=== PATIENT | male | born 1955 | race Caucasian/White ===

== ENCOUNTER 2016-07-20 15:34 | Inpatient (IN) ==
--- NOTE | 2016-07-20 17:09 | Emergency Department Note ---
Disposition Clinical Impression: Aneurysm artery, femoral Disposition: Admitted As Inpatient Condition: Good General Adult HPI - General Chief complaint: ED General Medical Stated complaint: knot near groin Time Seen by Provider: 07/20/16 16:26 Source: patient Limitations: no limitations - History of Present Illness Pain Scale: 10 - Related Data Home Medications Medication Instructions Recorded Confirmed Albuterol Sulfate [Albuterol 1 puff IH Q4H PRN 07/20/16 07/20/16 Inhaler] Aspirin Enteric Coated [Aspirin EC] 81 mg PO DAILY 07/20/16 07/20/16 Fenofibrate,Micronized [Lofibra] 200 mg PO DAILY 07/20/16 07/20/16 Isotretinoin [Absorica] 30 mg PO DAILY 07/20/16 07/20/16 Niacin (Inositol Niacinate) 500 mg PO TID 07/20/16 07/20/16 [Niacin 500 mg Capsule] [place]-3/Dha/Epa/Fish Oil [Fish Oil 1,000 mg PO DAILY 07/20/16 07/20/16 1,000 mg Softgel] Pravastatin Sodium [Pravachol] 80 mg PO DAILY 07/20/16 07/20/16 Quinapril HCl [Accupril] 40 mg PO DAILY 07/20/16 07/20/16 Allergies Allergy/AdvReac Type Severity Reaction Status Date / Time No Known Allergies Allergy Verified 07/20/16 17:11 Past Medical History - Past Medical History Medical history: Reports: asthma, hyperlipidemia, hypertension, peripheral artery disease Psychiatric history: Reports: no psych history - Social History Smoking Status: Current every day smoker Smokeless Tobacco Status: No Alcohol use: Reports: occasionally Drug use: Reports: none Physical Exam - General Limitations: no limitations General appearance: alert, in no apparent distress Course Vital Signs Temperature 98.4 F 07/20/16 15:53 Pulse Rate 96 07/20/16 15:53 Respiratory Rate 18 07/20/16 15:53 Blood Pressure 112/74 07/20/16 15:53 O2 Sat by Pulse Oximetry 96 07/20/16 15:53 Temperature 98.4 F 07/20/16 20:13 Pulse Rate 70 07/20/16 20:13 Respiratory Rate 18 07/20/16 20:13 Blood Pressure 146/85 07/20/16 20:13 O2 Sat by Pulse Oximetry 94 L 07/20/16 20:13 Oxygen Delivery Oxygen Delivery Room Air Medical Decision Making - Lab Data Result diagrams: 07/20/16 17:37 07/20/16 17:37 Lab Results 07/20/16 07/20/16 07/20/16 Range/Units 17:37 17:37 17:37 WBC 10.2 (4.3-11.1) K/mcL RBC 5.04 (4.19-5.50) M/mcL Hgb 15.2 (12.9-16.9) g/dL Hct 46.6 (37.5-50.1) % MCV 92.5 (83.0-100.0) fL MCH 30.2 (28.0-33.3) pg MCHC 32.6 (31.6-35.5) g/dL RDW 12.7 (11.5-14.5) % Plt Count 334 (140-400) K/mcL MPV 8.8 L (9.4-12.4) fL Immature Gran % 0.3 (0-4) % Seg Neutrophils % 59.7 % Lymphocytes % 26.5 % Monocytes % 10.7 % Eosinophils % 2.5 % Basophils % 0.3 % Neutrophils # 6.1 (1.6-8.9) K/mcL Lymphocytes # 2.7 (0.6-4.6) K/mcL Monocytes # 1.1 (0.0-1.3) K/mcL Eosinophils # 0.3 (0.0-0.6) K/mcL Basophils # 0.0 (0.0-0.2) K/mcL PT 12.3 H (9.4-12.1) Seconds INR 1.1 APTT 27.8 (26.0-36.0) Seconds Sodium 139 (136-145) mEq/L Potassium 4.2 (3.5-4.5) mEq/L Chloride 105 (98-109) mEq/L Carbon Dioxide 26 (19-29) mEq/L BUN 11 (8-26) mg/dL Creatinine 0.76 (0.72-1.25) mg/dL Est GFR ( Amer) > 60 (> 60) Est GFR (Non-Af Amer) > 60 (> 60) BUN/Creatinine Ratio 14 (6-26) Glucose 100 H (70-99) mg/dL Calculated Osmolality 287 (280-300) Calcium 8.9 (8.6-10.8) mg/dL Critical Care Time Critical Care Time: Yes Total Critical Care Time: 30 Attestation: Critical care performed: Time is exclusive of separately billable procedures. Time includes: direct patient care, patient reassessment, coordination of patient care, interpretation of data (laboratory data, radiology data, and respiratory data), review of patient's medical records, medical consultation and documentation of patient care. Procedures included in critical care time: Procedures excluded from critical care time: Attestation Statement - Attestation Attestation: I examined this patient and my medical decision-making was reviewed with the CHILD AND FAMILY SERVICES WORKER/PA/Advanced Practice Nurse/Resident Physician. I agree with the documented findings, disposition and treatment plan as described except to the extent set forth below. Patient emergency department playing of a knot in his left groin. He was sent in by his crusher screen repairer. States he noticed it 3 days ago. On examination there is a palpable knot that is pulsatile in his left groin. No redness or warmth to the area. Plan. We will get an arterial Doppler. Reviewing the patient's old charts he appears to have had a similar episode in 1999 1510 and an ophthalmologically migraine had a prior aortic [place] bypass in the left side. Question if this is happening again. We will get ultrasound discussed with vascular.
--- NOTE | 2016-07-20 17:13 | Emergency Department Note ---
Disposition Clinical Impression: Aneurysm artery, femoral Disposition: Admitted As Inpatient Condition: Good Referrals: NO,PCP [Primary Care Provider] - Forms: ED Satisfaction Letter, Work/School Release Time of Disposition: 18:29 General Adult HPI - General Chief complaint: ED General Medical Stated complaint: knot near groin Time Seen by Provider: 07/20/16 16:26 Source: patient Limitations: no limitations Nursing Notes Reviewed: Yes Vital Signs Reviewed: Yes - History of Present Illness HPI Narrative: Patient noticed a mass 3 days ago in his left groin. He states that he was at the [facility] today and that doctor stated that he needed to come to be evaluated in the emergency department. Pain Scale: 10 - Related Data Allergies Allergy/AdvReac Type Severity Reaction Status Date / Time No Known Allergies Allergy Verified 07/20/16 17:11 Review of Systems: Patient denies any fevers or chills. He denies any headaches or syncope. Denies any shortness of breath or chest pain. He does state that he has a numbness feeling in the ball of his left foot. He denies any swelling or edema to his extremities. He does state that he has and not to his left groin area. All systems ED: reviewed and negative except as stated. Past Medical History - Past Medical History Medical history: Reports: asthma, hyperlipidemia, hypertension, peripheral artery disease Psychiatric history: Reports: no psych history - Social History Smoking Status: Current every day smoker Smokeless Tobacco Status: No Alcohol use: Reports: occasionally Drug use: Reports: none Physical Exam - General Limitations: no limitations General appearance: alert, in no apparent distress - Head Head exam: atraumatic, normocephalic, normal inspection - Eye Eye exam: Present: normal appearance, PERRL, EOMI - ENT ENT exam: normal exam, normal oropharynx, mucous membranes moist - Neck Neck exam: Present: normal inspection, full ROM, trachea midline - Chest Chest inspection: Present: normal inspection, symmetric chest wall rise - Respiratory Respiratory exam: Present: normal lung sounds bilaterally. Absent: respiratory distress - Cardiovascular Cardiovascular exam: Present: regular rate, normal rhythm, normal heart sounds - Abdominal Exam Abdominal exam: Present: soft, Non-Tender, normal bowel sounds, other ( Pulsating masses left groin. Pain with deep palpation to this area.). Absent: tenderness, distention, guarding, rebound, rigidity, organomegaly - Extremities Exam Extremities exam: Present: normal inspection, full ROM, normal capillary refill. Absent: tenderness, pedal edema - Expanded Lower Extremity Exam Hip/Pelvis exam: Present: normal inspection, full ROM Upper leg exam: Present: normal inspection, full ROM Knee exam: Present: normal inspection, full ROM Lower leg exam: Present: normal inspection, full ROM Ankle exam: Present: normal inspection, full ROM Foot/toe exam: Present: normal inspection, full ROM, other (Patient states numbness to the ball of his left foot.). Absent: tenderness Neurovascular/Tendon exam: Present: normal capillary refill, other (Strong posterior tibial pulses bilaterally.). Absent: pulse deficit, motor deficit, sensory deficit, tendon deficit - Back Exam Back exam: Present: normal inspection, full ROM. Absent: tenderness - Neurological Exam Neurological exam: Present: alert, oriented X3 - Psychiatric Psychiatric exam: Present: normal affect, normal mood - Skin Skin exam: Present: warm, dry, intact, normal color. Absent: rash, cyanosis Course Course Narrative: Patient presenting to the emergency department with a three-day history of a left inguinal mass. He does have a history in 2015 of vascular surgery to both femoral arteries. He has a pulsating left femoral aneurysm. On Doppler ultrasound this was shown to be greater than 3 cm. He has strong pulses distal to the this aneurysm. Dr. Linder was consultative and is going to admit patient. Patient is also complaining of a chronic back pain. We will give patient a oxycodone for his pain. He has no other complaints at this time. He is well-appearing. - Reevaluation(s) Reevaluation #1: Patient informed we will be admitting him and he will see Dr. Perez her in the morning. He is requesting a pain pill for his chronic back pain. He states he normally takes oxycodone tens at home. Time: 18:06 - Consultations Consultation #1: Spoke with Dr Light. He agrees to admit to his service. Time: 18:05 Consultation #2: Dr. Ahumada called back and requested a CTA aorta with runoff as well as fluids at 1 mg/kg and a cardiac diet with nothing by mouth at midnight. I have added these orders to the patient's chart. He is to follow-up with a CTA. Time: 18:29 Vital Signs Temperature 98.4 F 07/20/16 15:53 Pulse Rate 96 07/20/16 15:53 Respiratory Rate 18 07/20/16 15:53 Blood Pressure 112/74 07/20/16 15:53 O2 Sat by Pulse Oximetry 96 07/20/16 15:53 Temperature 98.4 F 07/20/16 15:53 Pulse Rate 93 07/20/16 16:41 Respiratory Rate 18 07/20/16 16:41 Blood Pressure 148/96 07/20/16 16:41 O2 Sat by Pulse Oximetry 94 L 07/20/16 16:41 Oxygen Delivery Oxygen Delivery Room Air Medical Decision Making - Lab Data Result diagrams: 07/20/16 17:37 07/20/16 17:37 Lab Results 07/20/16 07/20/16 07/20/16 Range/Units 17:37 17:37 17:37 WBC 10.2 (4.3-11.1) K/mcL RBC 5.04 (4.19-5.50) M/mcL Hgb 15.2 (12.9-16.9) g/dL Hct 46.6 (37.5-50.1) % MCV 92.5 (83.0-100.0) fL MCH 30.2 (28.0-33.3) pg MCHC 32.6 (31.6-35.5) g/dL RDW 12.7 (11.5-14.5) % Plt Count 334 (140-400) K/mcL MPV 8.8 L (9.4-12.4) fL Immature Gran % 0.3 (0-4) % Seg Neutrophils % 59.7 % Lymphocytes % 26.5 % Monocytes % 10.7 % Eosinophils % 2.5 % Basophils % 0.3 % Neutrophils # 6.1 (1.6-8.9) K/mcL Lymphocytes # 2.7 (0.6-4.6) K/mcL Monocytes # 1.1 (0.0-1.3) K/mcL Eosinophils # 0.3 (0.0-0.6) K/mcL Basophils # 0.0 (0.0-0.2) K/mcL PT 12.3 H (9.4-12.1) Seconds INR 1.1 APTT 27.8 (26.0-36.0) Seconds Sodium 139 (136-145) mEq/L Potassium 4.2 (3.5-4.5) mEq/L Chloride 105 (98-109) mEq/L Carbon Dioxide 26 (19-29) mEq/L BUN 11 (8-26) mg/dL Creatinine 0.76 (0.72-1.25) mg/dL Est GFR ( Amer) > 60 (> 60) Est GFR (Non-Af Amer) > 60 (> 60) BUN/Creatinine Ratio 14 (6-26) Glucose 100 H (70-99) mg/dL Calculated Osmolality 287 (280-300) Calcium 8.9 (8.6-10.8) mg/dL
[2016-07-20 17:58] LABS: Basophils % 0.3 %; Eosinophils # 0.3 K/mcL (0.0-0.6); Eosinophils % 2.5 %; Hematocrit 46.6 % (37.5-50.1); Hemoglobin 15.2 g/dL (12.9-16.9); Immature Granulocytes % 0.3 % (0-4); Lymphocytes # 2.7 K/mcL (0.6-4.6); Lymphocytes % 26.5 %; Mean Corpuscular HGB Conc 32.6 g/dL (31.6-35.5); Mean Corpuscular Hemoglobin 30.2 pg (28.0-33.3); Mean Corpuscular Volume 92.5 fL (83.0-100.0); Mean Platelet Volume 8.8 fL (9.4-12.4); Monocytes # 1.1 K/mcL (0.0-1.3); Monocytes % 10.7 %; Neutrophils # 6.1 K/mcL (1.6-8.9); Platelet Count 334 K/mcL (140-400); Red Blood Count 5.04 M/mcL (4.19-5.50); Red Cell Distribution Width 12.7 % (11.5-14.5); Segmented Neutrophils % 59.7 %
[2016-07-20 18:03] LABS: INR 1.1; Prothrombin Time 12.3 Seconds (9.4-12.1)
[2016-07-20 18:06] LABS: Activated Partial Thrombo Time 27.8 Seconds (26.0-36.0)
[2016-07-20] MEDS ORDERED: *HR* OxyCODONE/APAP 10/325 TABLET PO ONE (18:06)
[2016-07-20 18:10] LABS: BUN/Creatinine Ratio 14 (6-26); Blood Urea Nitrogen 11 mg/dL (8-26); Calcium 8.9 mg/dL (8.6-10.8); Carbon Dioxide 26 mEq/L (19-29); Chloride 105 mEq/L (98-109); Glucose 100 mg/dL (70-99); Osmolality,Calculated 287 (280-300); Potassium 4.2 mEq/L (3.5-4.5); Sodium 139 mEq/L (136-145); eGFR For African Americans > 60 (> 60); eGFR For Non-African Americans > 60 (> 60)
[2016-07-20] MEDS: 0.9 % Sodium Chloride 1,000 ML IVC SCH (22:15)
[2016-07-20] MEDS: *HR* OxyCODONE/APAP 5/325 TABLET PO PRN (22:35)
[2016-07-21] MEDS: Ipratropium/Albuterol Neb 3 ML IH SCH ×7 (00:12→23:24)
[2016-07-21] MEDS ORDERED: *HR* Heparin 5,000 UNIT/ML VIAL ONE (04:10)
[2016-07-21] MEDS: *HR* OxyCODONE/APAP 5/325 TABLET PO PRN ×2 (04:13→10:21)
[2016-07-21] MEDS: *HR* Heparin 5,000 UNIT/ML VIAL SQ SCH ×2 (04:14→17:15)
[2016-07-21 05:44] LABS: Basophils % 0.3 %; Eosinophils # 0.4 K/mcL (0.0-0.6); Eosinophils % 4.6 %; Hematocrit 43.5 % (37.5-50.1); Hemoglobin 14.5 g/dL (12.9-16.9); Immature Granulocytes % 0.4 % (0-4); Lymphocytes # 3.5 K/mcL (0.6-4.6); Lymphocytes % 38.7 %; Mean Corpuscular HGB Conc 33.3 g/dL (31.6-35.5); Mean Corpuscular Hemoglobin 31.8 pg (28.0-33.3); Mean Corpuscular Volume 95.4 fL (83.0-100.0); Mean Platelet Volume 9.1 fL (9.4-12.4); Monocytes % 10.7 %; Neutrophils # 4.1 K/mcL (1.6-8.9); Platelet Count 290 K/mcL (140-400); Red Blood Count 4.56 M/mcL (4.19-5.50); Red Cell Distribution Width 12.9 % (11.5-14.5); Segmented Neutrophils % 45.3 %
[2016-07-21 05:59] LABS: BUN/Creatinine Ratio 11 (6-26); Blood Urea Nitrogen 8 mg/dL (8-26); Calcium 8.6 mg/dL (8.6-10.8); Carbon Dioxide 25 mEq/L (19-29); Chloride 107 mEq/L (98-109); Glucose 105 mg/dL (70-99); Osmolality,Calculated 287 (280-300); Potassium 4.2 mEq/L (3.5-4.5); Sodium 139 mEq/L (136-145); eGFR For African Americans > 60 (> 60); eGFR For Non-African Americans > 60 (> 60)
--- NOTE | 2016-07-21 06:58 | Vascular/Endovascular H&P ---
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 He does have mild tenderness at this time. He is unable to tell how long the aneurysm has been present Given the size and morphology of his aneurysm, open repair has been recommended during this hosptialization. He will be scheduled for repair of his aneurysm. The risks, benefits and alternatives were discussed and all questions were answered. He will require bedrest, pain control, intravenous hydration and assessment of his aneurysm until repair. (2) Mixed hyperlipidemia Current Visit: Yes Status: Chronic The patient was counseled regarding atheorsclerotic risk factor reduction. (3) Essential hypertension Current Visit: Yes Status: Chronic (4) Tobacco abuse Current Visit: Yes Status: Chronic He was counseled regardnig smoking cessation. He declines a nicotine patch at this time. History of Present Illness Chief complaint: Left femoral artery aneurysm HPI: Mr. Bowser is a 60 year old male with a history of peripheral vascular disease. He underwent an aorto-left femoral bypass by Dr. Arauz in July 2008. He developed a left femoral aneurysm that was repaired in November [address] Arauz. He as last seen by Dr. Arauz in 2014. He was scheduled to see Dr. Hernandez in 2015, but he cancelled that appointment. The patient presented to [facility] ER overnight with a recurrent pulsatile mass in the left groin. He has been admitted to the vascular surgery service for further evaluation and intervention. At this time, he reports that he is comfortable. He denies any leg pain, claudication, rest pain, ulceration or gangrene. He denies chest pain or shortness of breath. Past Med Surg Social Fam HX - Past Medical History Medical history: asthma, hyperlipidemia, hypertension, peripheral artery disease Psychiatric history: no psych history - Past Surgical History Surgical History: vascular surgery (aorto-left femoral bypass, left femoral aneurysm repair) - Social History Smoking Status: Current every day smoker Smokeless Tobacco Status: No Alcohol use: occasionally Drug use: none - Family History Mother Name: Lucas Bowser Living Status: Age at : 78 Cause of : Unknown Hx Family Cardiac Disorders: No Hx Family Respiratory Disorders: No Hx Family Cancer: No Hx Family GI Disorders: No Hx Family Genitourinary Disorders: No Hx Family Endocrine Disorder: No Hx Family Musculoskeletal Disorders: No Hx Family Neuromuscular Disorders: No Hx Family Neurologic Disorders: No Hx Family HEENT Disorders: No Hx Family Autoimmune Disorders: No Hx Family Reproductive Disorders: No Hx Family Psychosocial Disorders: No Hx Family Medical Disorders: No Medications and Allergies Albuterol Sulfate [Albuterol Inhaler] 1 puff IH Q4H PRN 07/20/16 [History] Aspirin Enteric Coated [Aspirin EC] 81 mg PO DAILY 07/20/16 [History] Fenofibrate,Micronized [Lofibra] 200 mg PO DAILY 07/20/16 [History] Isotretinoin [Absorica] 30 mg PO DAILY 07/20/16 [History] Niacin (Inositol Niacinate) [Niacin 500 mg Capsule] 500 mg PO TID 07/20/16 [ History] [place]-3/Dha/Epa/Fish Oil [Fish Oil 1,000 mg Softgel] 1,000 mg PO DAILY 07/20/16 [History] Pravastatin Sodium [Pravachol] 80 mg PO DAILY 07/20/16 [History] Quinapril HCl [Accupril] 40 mg PO DAILY 07/20/16 [History] Allergies No Known Allergies Allergy (Verified 07/20/16 17:11) All Systems Review: A 10-system review of systems was performed and is negative for pertinent findings except as documented above in the HPI. - Constitutional Constitutional: no chills, no fever(s) - Cardiovascular Cardiovascular: no chest pain at rest, no chest pain with exertion, no dyspnea at rest, no dyspnea on exertion - Vascular Vascular: no leg pain with exertion, no lower extremity ulcers, no lower extremity discoloration, no lower extremity coldness - Musculoskeletal Musculoskeletal: no abnormal gait Exam Vital Signs, Last 4 Hours Temp Pulse Resp BP Pulse Ox 07/21/16 04:35 20 91 L 07/21/16 04:09 97.9 F 60 15 135/77 95 General: Present: Conversant, No Apparent Distress HEENT: Present: Trachea midline, Pupils equal Neck: Absent: JVD, Lymphadenopathy, Left Carotid bruit, Right Carotid bruit Cardiac: Present: Reg Rate and Rhythm, Normal S1 and S2, No Murmur Lungs: Present: Normal Breath Sounds, No Wheeze, Rales, Rhonchi Neuro: Present: Alert and responsive, No focal deficits noted, Cranial nerves grossly intact, Motor nerves grossly intact, Sensory nerves grossly intact Abdomen: Present: Soft, Non-tender, Masses. Absent: Hepatosplenomegaly Vascular: Present: Normal capillary refill, Pulse, normal, Other (pulsatile mass in the left inguinal fold overlying the left femoral vessels, mild tenderness). Absent: Clubbing, Cyanosis, Edema Results 07/24/16 05:06 07/24/16 05:06 Lab Results, Last 24 hours 07/21/16 07/21/16 05:15 05:15 WBC 9.1 Hgb 14.5 Hct 43.5 Plt Count 290 Sodium 139 Potassium 4.2 Chloride 107 Carbon Dioxide 25 BUN 8 Creatinine 0.71 L Glucose 105 H Calcium 8.6 - Imaging / Other Tests CT/CTA: report reviewed, image reviewed (Left femoral artery anastamotic aneurysm versus pseudoaneurysm)
[2016-07-21] MEDS: Fenofibrate 54 MG TABLET PO SCH (07:27)
[2016-07-21] MEDS: Aspirin Enteric Coated 81 MG Tablet PO SCH (07:27)
[2016-07-21] MEDS: Lisinopril 20 MG TABLET PO SCH (07:27)
[2016-07-21] MEDS: 0.9 % Sodium Chloride 1,000 ML IVC SCH (10:23)
[2016-07-21] MEDS: *HR* OxyCODONE/APAP 10/325 TABLET PO PRN ×2 (14:04→20:08)
--- NOTE | 2016-07-21 16:28 | Arterial Study Report ---
LE Arterial Duplex Patient Name:Mike Bowser Order Number:[id number] Procedure Date:07/20/2016 Date:8Age:60 yrs Gender:Male Location:[facility] ED Room #: ED10 Windows Systems Engineer:Xenia Sarmiento RDCS Referring MD:Xenia Ferrell DO shoe repairer helper:None Reading MD:Manav Grande MD , FACS Primary Indications:Left Inguinal pulsatile mass Risk Factors Yes/No Hypertension Yes Hypercholesterolemia Yes Smoking Current Yes Impressions: Pseudoaneurym: present in distal left external iliac artery.. Recommendations: Futher evaluation is recommended. Test completed on 07/20/2016 at 5:50:00 pm. Critical findings reported to Dr Escudero in person at 5:52:00 pm on 07/20/2016 by Xenia Sarmiento RDCS. Findings Arterial Duplex Results: Left: There is a pseudoaneurysm involving the left distal external iliac artery measuring 2.8 cm AP X 2.2 cm TRV. There is a pseudoaneurysm involving the left distal external iliac artery. The origin is the external iliac. The left common femoral artery was not well visualized. LE Duplex Side Vessel PSV EDV Assessment Left Distal External Iliac 248 33 Left Distal External Iliac 93 21 Updated by Manav Grande MD, FACS on 07/21/2016 4:23:29 PM Manav Grande MD electronically signed on 07/21/2016 4:24:15 PM with status of Final
[2016-07-21] MEDS: Niacin (24 HR) 500 MG TAB.ER.24H PO SCH (21:37)
[2016-07-22] MEDS: 0.9 % Sodium Chloride 1,000 ML IVC SCH ×2 (00:02→14:08)
[2016-07-22] MEDS: *HR* OxyCODONE/APAP 10/325 TABLET PO PRN ×4 (02:55→21:04)
[2016-07-22] MEDS: Ipratropium/Albuterol Neb 3 ML IH SCH ×6 (03:52→23:44)
[2016-07-22] MEDS: *HR* Heparin 5,000 UNIT/ML VIAL SQ SCH ×2 (06:09→16:30)
[2016-07-22] MEDS: Lisinopril 20 MG TABLET PO SCH (07:40)
[2016-07-22] MEDS: Fenofibrate 54 MG TABLET PO SCH (07:40)
[2016-07-22] MEDS: Aspirin Enteric Coated 81 MG Tablet PO SCH (07:40)
[2016-07-22] MEDS: ISOTRETINOIN 30 MG PO SCH (10:02)
--- NOTE | 2016-07-22 13:56 | Vascular/[facility] Progress Note ---
Date of Encounter: 07/22/16 Time of Encounter: 12:30 - Assessment and plan (1) Aneurysm artery, femoral Current Visit: Yes Status: Chronic The patient has a recurrent left femoral artery anastamotic aneurysm. There has been no expansion. He remains mildly tender without increased pain or swelling. Repair has been scheduled for tomorrow. He will be typed and crossed. He will remain on bedrest. (2) Mixed hyperlipidemia Current Visit: Yes Status: Chronic He was reminded regarding atherosclerotic risk factor reduction and smoking cessation. (3) Tobacco abuse Current Visit: Yes Status: Chronic (4) Essential hypertension Current Visit: Yes Status: Chronic - Subjective Interval history: The patient denies any new pain, swelling or tenderness. He is alert and comfortable. He denies chest pain or shortness of breath. Vital Signs, Last 4 Hours Temp Pulse Resp BP Pulse Ox 07/22/16 11:33 16 92 L 07/22/16 11:30 98.3 F 70 16 114/78 92 L 07/22/16 10:58 58 - Physical Examination General: Present: Conversant, No Apparent Distress HEENT: Present: Atraumatic, Normocephaly Neck: Absent: JVD, Lymphadenopathy Cardiac: Present: Reg Rate and Rhythm, Normal S1 and S2 Lungs: Present: Normal Breath Sounds, No Wheeze, Rales, Rhonchi Neuro: Present: Alert and responsive, No focal deficits noted, Motor nerves grossly intact, Sensory nerves grossly intact Vascular: Present: Normal capillary refill, Pulse, normal. Absent: Cyanosis, Edema (Left femoral artery aneurysm mildly tender, no change in size) Abdomen: Present: Soft, Non-tender. Absent: Masses Skin: Absent: No rashes noted on visualized skin Musculoskeletal: Absent: No Chest Wall Tenderness Results 07/24/16 05:06 07/24/16 05:06 Consult Discharge Plan - Plan Referrals: [facility] [Other] - 07/31/16 10:45 am Jarrod Mcdaniel CNP [Advanced Practice Nurse] - (THIS CLASSIFIED AD CLERK HAS NO OPENINGS, SO YOU WILL SEE [facility]ST[facility]INE ON 3-3 @ [id number] THEN YOU CAN GO BACK TO [facility].)
[2016-07-22] MEDS: Niacin (24 HR) 500 MG TAB.ER.24H PO SCH (21:04)
[2016-07-23] MEDS: 0.9 % Sodium Chloride 1,000 ML IVC SCH ×2 (03:45→05:46)
[2016-07-23] MEDS: *HR* OxyCODONE/APAP 10/325 TABLET PO PRN ×2 (03:45→10:02)
[2016-07-23] MEDS: Ipratropium/Albuterol Neb 3 ML IH SCH ×5 (05:09→19:39)
[2016-07-23] MEDS: *HR* Heparin 5,000 UNIT/ML VIAL SQ SCH (05:58)
[2016-07-23] MEDS: Lisinopril 20 MG TABLET PO SCH (07:42)
[2016-07-23] MEDS: Aspirin Enteric Coated 81 MG Tablet PO SCH (07:43)
[2016-07-23] MEDS: ISOTRETINOIN 30 MG PO SCH (07:43)
[2016-07-23] MEDS: Fenofibrate 54 MG TABLET PO SCH (07:43)
[2016-07-23] MEDS ORDERED: *HR* Propofol 200 MG/20 ML VIAL IVP ONE (10:28)
[2016-07-23] MEDS ORDERED: *HR* Rocuronium Bromide 50 MG/5 ML VIAL ONE (10:36)
[2016-07-23] MEDS ORDERED: *HR* Succinylcholine 200 MG/10 ML VIAL IVP ONE (10:36)
[2016-07-23] MEDS ORDERED: Lidocaine -MPF 4% 5 ML AMPUL ONE (10:36)
[2016-07-23] MEDS ORDERED: Ondansetron 4 MG/2 ML VIAL ONE (10:36)
[2016-07-23] MEDS ORDERED: Lidocaine -MPF 2% 2 ML VIAL ONE (10:36)
[2016-07-23] MEDS ORDERED: *HR* Midazolam HCl 2 MG/2 ML VIAL ONE (10:37)
[2016-07-23] MEDS ORDERED: *HR* FentaNYL (PF) 100 MCG/2 ML VIAL ONE (10:37)
--- NOTE | 2016-07-23 11:27 | Anesthesia Evaluation PreOp ---
Date of Encounter: 07/23/16 Time of Encounter: 11:25 - Past History Planned Operation: femoral aneurysm repair Cardiac History: HTN, Hyperlipidemia, Other (pad) Pulmonary History: Smoker, Asthma LUMITE INJECTOR History: Denies Any Significant HX Other Medical History: Denies Any Significant HX Anesthesia History: No Prior Anesthetic Complications, Past Anesthesia (Ao-l fem bypass,) Alcohol Use: occasionally Drug use: none Medications and Allergies Albuterol Sulfate [Albuterol Inhaler] 1 puff IH Q4H PRN 07/20/16 [History] Aspirin Enteric Coated [Aspirin EC] 81 mg PO DAILY 07/20/16 [History] Fenofibrate,Micronized [Lofibra] 200 mg PO DAILY 07/20/16 [History] Isotretinoin [Absorica] 30 mg PO DAILY 07/20/16 [History] Niacin (Inositol Niacinate) [Niacin 500 mg Capsule] 500 mg PO TID 07/20/16 [ History] [place]-3/Dha/Epa/Fish Oil [Fish Oil 1,000 mg Softgel] 1,000 mg PO DAILY 07/20/16 [History] Pravastatin Sodium [Pravachol] 80 mg PO DAILY 07/20/16 [History] Quinapril HCl [Accupril] 40 mg PO DAILY 07/20/16 [History] Allergies No Known Allergies Allergy (Verified 07/20/16 17:11) - Meds/Allergy Pre-op Review Medications Reviewed: Yes Allergies Reviewed: Yes Beta Blockers on Current Med List: No Anesthesia Results - Labs 07/21/16 05:15 07/21/16 05:15 - Imaging EKG: report reviewed (sb, poor r wave progression) Anesthesia Exam Vital Signs/O2 Sat/Glucose, Most Current Temp Pulse Resp BP Pulse Ox 07/23/16 07:58 16 96 07/23/16 07:51 51 07/23/16 07:27 97.9 F 51 18 130/75 100 Height: 1.73 Weight: 78 NPO (# of Hours): >8 - HEENT Pupil (Motor): Pupils equal, EOMI Mallampati: I Teeth: Poor dentition Oral Opening: Greater than 3 - LUMITE INJECTOR LOC: Oriented LUMITE INJECTOR Motor: Normal RUE, Normal LUE, Normal RLE, Normal LLE, Normal Face LUMITE INJECTOR Sensory: Normal: RUE, LUE, RLE, LLE, Face - Cardiac Rhythm: Regular Murmur: None - Pulmonary Breath Sounds: bilateral Clear Respiratory Effort: Symmetrical Anesthesia Assess/Plan ASA Score: 3 Modified Olaf Scale for Level of Consciousness: Cooperative, oriented, and tranquil Anesthetic Plan: General Monitoring Plan: Standard Monitors Recovery Plan: PACU
[2016-07-23] MEDS ORDERED: Ketamine *HR* 500 MG/10 ML MDV ONE (11:45)
[2016-07-23] MEDS ORDERED: *HR* Heparin 5,000 UNIT/ML VIAL ONE (11:52)
[2016-07-23] MEDS ORDERED: Vancomycin 1,000 MG VIAL ONE (12:31)
[2016-07-23] MEDS ORDERED: *HR* Phenylephrine 10 MG/ML VIAL ONE (12:39)
[2016-07-23] MEDS ORDERED: EPHEDrine 50 MG/ML VIAL ONE (12:41)
[2016-07-23] MEDS ORDERED: *HR* Morphine 10 MG/ML VIAL ONE (13:19)
[2016-07-23] MEDS ORDERED: Ondansetron 4 MG/2 ML VIAL IVP ONE (13:43)
[2016-07-23] MEDS ORDERED: *HR* HYDROmorphone (PF) 1 MG/ML SYRINGE IVP PRN (13:43)
[2016-07-23] MEDS ORDERED: *HR* Labetalol 100 MG/20 ML MDV IVP PRN (13:43)
[2016-07-23] MEDS ORDERED: Acetaminophen IV 1,000 MG/100 ML INFUS..BTL ONE (14:34)
[2016-07-23] MEDS ORDERED: Dexmedetomidine HCl 200 MCG/50 ML MLS IVC ONE (14:43)
[2016-07-23] MEDS ORDERED: *HR* HYDROmorphone 2 MG/ML SYRINGE ONE (15:34)
--- NOTE | 2016-07-23 15:55 | Operative Note ---
Date of procedure: 07/23/16 Pre-op diagnosis: Left femoral artery aneurysm Post-op diagnosis: same Procedure: 1. Resection of ruptured left femoral artery aneurysm and repair of left femoral artery ruptured aneurysm with 8mm PTFE bypass. Complications: None Anesthesia: KELLYA Surgeon: Celestine Paez Estimated blood loss (cc): 500 Specimen: Left femoral aneurysm, left groin lymph node Condition: stable Disposition: PACU Procedure in Detail: Indications: The patient is a 60 year old male with a history of peripheral vascular disease. He has a history of an aorto-left femoral artery bypass several years ago. 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 He presented to the ER with complaints of tendernesas nad a pulsatile mass in the left groin. He was found to have a left femoral artery recurent aneurysm. Repair of his aneurysm was recommended. Procedure: An oblique incision was made over the left groin sharply. Hemostasis was obtained with electrocautery. Through a process of blunt, sharp , and electrocautery dissection, the left femoral vessels and bypass graft were dissected and surrounded with vessel loops. The aneurysm sac was carefully dissected free from surrounding structures. The patient received 5000 units of heparin intravenously. Additional heparin was given throughout the case to maintain adequate anticoagulation. Tension was applied to the femoral vessel loops and the graft was clamped. An arteriotomy was made longitudinally through the aneurysm with a #11 blade. This was extended proximally and distally with Hitchcock scissors. Throubus was removed and it was then noted that the entire lateral margin of the garft anastamosis was disrupted. This had resulted in a contained rupture of the common femoral artery. Significant bleeding was noted from collateral collateral vessels. Mills occluders were placed in the vessels and inflated. The bleeding stopped. The aneurysm was resected until heathy margins wer noted Thegraft as transected above the anastamosis and the distal end was completely removed. An 8mm righ reinforced PTFE graft was cut to fit the arterial defect was was sutured in placed with a running 6-0 prolene. The mills occluders were removed prior to completing the anastamosis. The lumen was irrigated with heparinized saline and tehn clamped. The graft was then cut to fit end to end with the aortofemoral limb. It was sutured in placed with a 5-0 running prolene. Prior to completing the anastamosis, the grafts wer flushed and infused with heparinized saline. The anastoamosis was then completed and then flow was restored. Polyphasic signals were noted distal to the distal anastomosis as well as at the left deep and superfical femoral arteries. The wound was irrigated with antibiotic-containing saline. Thrombin and gelfoam were used to aid in hemostasis. Platelet rich and platelet poor plasma were infused into the wound. Meticulous hemostasis was obtained throughout the wound with electrocautery. The wound was reapproximated with layers of 2-0 and 3-0 Vicryl. Skin was reapproximated with 3-0 Monocryl. Sterile dressing was applied. The patient was extubated and taken to recovery room in stable condition.
[2016-07-23] MEDS ORDERED: Ringers Solution, Lactated 1,000 ML ONE (16:10)
[2016-07-23] MEDS ORDERED: *HR* HYDROcodone/Acet 5/325 mg TABLET PO PRN (16:11)
[2016-07-23] MEDS ORDERED: *HR* Morphine 2 MG/ML SYRINGE IVP PRN (16:11)
[2016-07-23] MEDS ORDERED: Naloxone 0.4 MG/ML INJ IVP PRN (16:11)
[2016-07-23] MEDS ORDERED: *HR* Labetalol 20 MG/4 ML SYRINGE IVP PRN (16:11)
[2016-07-23] MEDS ORDERED: Acetaminophen 325 MG TABLET PO PRN (16:11)
[2016-07-23] MEDS ORDERED: *HR* OxyCODONE Immed Rel 5 MG TABLET PO PRN (16:11)
[2016-07-23] MEDS ORDERED: Ondansetron 4 MG/2 ML VIAL IVP PRN (16:11)
--- NOTE | 2016-07-23 16:46 | Anesthesia Evaluation Post Op ---
Date of Encounter: 07/23/16 Time of Encounter: 16:46 - Vital Signs Vital Signs: Vital Signs/O2 Sat/Glucose, Most Current Temp Pulse Resp BP Pulse Ox 07/23/16 16:38 81 18 110/81 95 07/23/16 16:28 78 16 108/85 96 07/23/16 16:18 97.0 F L 79 18 114/71 93 L 07/23/16 16:08 81 16 90/67 90 L 07/23/16 15:58 76 18 77/57 92 L 07/23/16 15:48 97.7 F 62 18 100/63 95 - Lungs Lungs: Clear Ascult./Percussion - Airway Airway: Non-obstructed - Cardiovascular Regular Rate - Mental Status Mental Status: Alert & Oriented, Answers Appropriately - Pain Pain Scale: 0 - Nausea Vomiting Nausea Vomiting: Not Present - Hydration Hydration: Ice chips - Discharge PostOp Status: Transfer Patient to floor
[2016-07-23] MEDS: ceFAZolin 2,000 MG in D5% in Water 100 ML IVPB SCH (17:17)
[2016-07-23] MEDS: *HR* Metoprolol 5 MG/5 ML VIAL IVP SCH (17:22)
[2016-07-23] MEDS ORDERED: Niacin (24 HR) 500 MG TAB.ER.24H PO SCH (21:00)
[2016-07-23] MEDS ORDERED: Vancomycin 1,000 MG in D5% in Water 250 ML IVPB ONE (23:00)
[2016-07-24] MEDS: Ipratropium/Albuterol Neb 3 ML IH SCH ×4 (00:14→11:41)
[2016-07-24] MEDS: *HR* Metoprolol 5 MG/5 ML VIAL IVP SCH ×2 (00:30→06:05)
[2016-07-24] MEDS: ceFAZolin 2,000 MG in D5% in Water 100 ML IVPB SCH (03:45)
[2016-07-24 05:48] LABS: Basophils % 0.1 %; Hematocrit 42.6 % (37.5-50.1); Hemoglobin 14.1 g/dL (12.9-16.9); Immature Granulocytes % 0.3 % (0-4); Lymphocytes # 1.1 K/mcL (0.6-4.6); Lymphocytes % 9.2 %; Mean Corpuscular HGB Conc 33.1 g/dL (31.6-35.5); Mean Corpuscular Hemoglobin 31.3 pg (28.0-33.3); Mean Corpuscular Volume 94.7 fL (83.0-100.0); Mean Platelet Volume 9.1 fL (9.4-12.4); Monocytes # 0.5 K/mcL (0.0-1.3); Monocytes % 4.3 %; Neutrophils # 10.2 K/mcL (1.6-8.9); Platelet Count 275 K/mcL (140-400); Red Cell Distribution Width 12.7 % (11.5-14.5); Segmented Neutrophils % 86.1 %
[2016-07-24 06:12] LABS: BUN/Creatinine Ratio 11 (6-26); Blood Urea Nitrogen 8 mg/dL (8-26); Calcium 9.2 mg/dL (8.6-10.8); Carbon Dioxide 27 mEq/L (19-29); Chloride 104 mEq/L (98-109); Glucose 121 mg/dL (70-99); Osmolality,Calculated 288 (280-300); Potassium 4.3 mEq/L (3.5-4.5); Sodium 139 mEq/L (136-145); eGFR For African Americans > 60 (> 60); eGFR For Non-African Americans > 60 (> 60)
[2016-07-24] MEDS ORDERED: *HR* Heparin 5,000 UNIT/ML VIAL SQ SCH (07:00)
[2016-07-24 07:30] VITALS: BP 143/85
--- NOTE | 2016-07-24 07:43 | Discharge Summary ---
Date of Encounter: 07/24/16 Time of Encounter: 08:10 - Discharge Diagnosis (1) Aneurysm artery, femoral Priority: Primary Status: Chronic Comments: The patient is postoperative day #1 after repair of a contained left femoral artery ruptured aneurysm. He is feeling better, his incision is healing. He is able to ambulate and his pain is well controlled. He will be discharged today. He will follow-up in clinic in a few weeks for further evaluation. (2) Mixed hyperlipidemia Priority: Secondary Status: Chronic Comments: The patient was counseled regarding atherosclerotic risk factor reduction. (3) Essential hypertension Priority: Secondary Status: Chronic (4) Tobacco abuse Priority: Secondary Status: Chronic Comments: The patient was counseled regarding smoking cessation. - Discharge Medications Prescriptions: Oxycodone HCl/Acetaminophen [Percocet 5-325 mg Tablet] 1 each PO Q4H PRN #40 tablet PRN Reason: postoperative pain Home Medications: Albuterol Sulfate [Albuterol Inhaler] 1 puff IH Q4H PRN 07/20/16 [History] Aspirin Enteric Coated [Aspirin EC] 81 mg PO DAILY 07/20/16 [History] Fenofibrate,Micronized [Lofibra] 200 mg PO DAILY 07/20/16 [History] Isotretinoin [Absorica] 30 mg PO DAILY 07/20/16 [History] Niacin (Inositol Niacinate) [Niacin 500 mg Capsule] 500 mg PO TID 07/20/16 [ History] [place]berg-3/Dha/Epa/Fish Oil [Fish Oil 1,000 mg Softgel] 1,000 mg PO DAILY 07/20/16 [History] Pravastatin Sodium [Pravachol] 80 mg PO DAILY 07/20/16 [History] Quinapril HCl [Accupril] 40 mg PO DAILY 07/20/16 [History] Oxycodone HCl/Acetaminophen [Percocet 5-325 mg Tablet] 1 each PO Q4H PRN #40 tablet 07/24/16 [Rx] Allergies/Adverse Reactions: Allergies No Known Allergies Allergy (Verified 07/20/16 17:11) Date of admission: 07/20/16 18:46 Primary care physician: Jaz Kay Procedure(s) Performed: Repair of left femoral artery aneurysm. Discharging clinician: Celestine Portillo date of discharge: 07/24/16 - Patient Status Disposition: Home, Self-Care Condition: Good Functional capacity at discharge: independent ambulation Overall status at discharge: patient is back to baseline - Discharge Instructions Instructions: Peripheral Vascular Disorders (DC) Follow Up With: CHRISTINE DEVINE [Other] - 07/31/16 10:45 am Jarrod Mcdaniel CNP [Advanced Practice Nurse] - (THIS [facility] HAS NO OPENINGS, SO YOU WILL SEE CHRISTINE DEVINE ON 3-3 @ 1047 THEN YOU CAN GO BACK TO [facility].) Celestine Martínez MD [Partnered Physician] - 09/07/16 1:00 pm Additional Instructions: MAY REMOVE BANDAGE AND SHOWER ON 07/25/16. WASH WOUND GENTLY AND PAT TO DRY. APPLY DRY BANDAGE TO WOUND DAILY FOR 7 DAYS. NO TUB BATHS OR SWIMMING UNTIL 08/17/16. CALL DR. MARTÍNEZ AT [phone] WITH QUESTIONS OR CONCERNS. - Diet and Activity Activity: increase activity as tolerated Diet: low fat, low cholesterol - Hospital Course Hospital course: Mr. Bowser is a 60 year old male who was admitted to [facility] on with complaint of a tender, pulsatile mass. He was found to have a recurrent left femoral artery aneurysm. His aneurysm had previously been repaired by Dr. Arauz in 2012. The patient was placed on bedrest and given pain control and IV fluid hydration. He was taken to the OR on 07/23/16 for repair of his aneurysm. At that time, he was noted to have a contained ruptured aneurysm. On postoperative day #1, he was feeling well, able to ambulate and had good pain control. He was discharged on postoperative day #1 in stable condition without complication. - Time Spent with Patient Total time spent providing and/or coordinating discharge services: Exam Vital Signs, Last 4 Hours Temp Pulse Resp BP Pulse Ox 07/24/16 07:26 97.7 F 60 16 143/85 93 L General: Present: Conversant, No Apparent Distress HEENT: Present: Trachea midline, Pupils equal Cardiac: Present: Reg Rate and Rhythm, Normal S1 and S2 Lungs: Present: Normal Breath Sounds, No Wheeze, Rales, Rhonchi Neuro: Present: Alert and responsive, No focal deficits noted Abdomen: Present: Soft, Non-tender. Absent: Masses Vascular: Present: Normal capillary refill, Surgical incisions (incision clean, dry and intact without erythema or drainage, no pulsatile mass.), Other (good distal pulses). Absent: Cyanosis, Edema Skin: Present: No rashes noted on visualized skin - VTE Documentation of Mechanical Device: Intermittent pneumatic compression device
[2016-07-24] MEDS ORDERED: Patient Taking Own Medication 1 EACH PO SCH (09:00)
[2016-07-24] MEDS ORDERED: Fenofibrate 54 MG TABLET PO SCH (09:00)
[2016-07-24] MEDS ORDERED: Aspirin Enteric Coated 81 MG Tablet PO SCH (09:00)
[2016-07-24] MEDS ORDERED: Lisinopril 20 MG TABLET PO SCH (09:00)
== END 2016-07-24 12:11 | disposition home or self-care (01) | DRG 169 ==
LOC: 2NNU 15:34 → EMEROO 15:34 → OBSVTOIN 18:46 → 2NNU 18:47
PROVIDERS: ADMIT Surgery; ATTEND Surgery